=== PATIENT | female | born 2000 ===

== ENCOUNTER 2018-05-04 21:09 | Emergency (ER) | payer SELFPAY ==
[~2018-05-04] VITALS: Ht 170.2 cm; Wt 78.0 kg
[2018-05-04 21:11] VITALS: BP 145/97
== END 2018-05-05 00:01 | disposition left against medical advice (07) ==
LOC: ER 22:16
DX: M54.5 Low back pain (principal); M25.551 Pain in right hip; F12.10 Cannabis abuse, uncomplicated; Z53.21 Procedure and treatment not carried out due to patient leaving prior to being seen by health care provider